=== PATIENT | male | born 1980 | race Caucasian/White ===

== ENCOUNTER 2017-05-07 10:58 | Day surgery (SDC) | payer OTHER ==
[2017-05-07] MEDS: NS 1,000 ML IV (12:00)
[2017-05-07] MEDS ORDERED: LIDOCAINE 2% INJ 100 MG/5 ML SDV (FOR ANES.) As Ordered (12:27)
[2017-05-07] MEDS ORDERED: PROPOFOL 200 MG/20 ML VIAL As Ordered ×2 (12:27→12:39)
== END 2017-05-07 13:32 | disposition home or self-care (01) ==
LOC: M OPP 10:58
DX: K63.5 Polyp of colon (principal); D12.5 Benign neoplasm of sigmoid colon; K62.1 Rectal polyp; K64.8 Other hemorrhoids
CPT/HCPCS: 45385